=== PATIENT | male | born 1975 | race Caucasian/White ===

== ENCOUNTER → 2018-11-13 | Outpatient (CLI) | payer OTHER ==
--- NOTE | 2018-11-14 17:48 | MRI ---
EXAM DESCRIPTION: Cervical Spine: MRI. CLINICAL HISTORY: 43 years Male Cervical disc disorder a C6-C7 level with radiculopathy COMPARISON: None. TECHNIQUE: Multiplanar, high-field MRI, multiple sequences, non-contrast Cervical spine. FINDINGS: A syrinx is seen in the central canal of the central spinal cord with air-fluid level with the mid C4 vertebral body and lower level of the mid C5 vertebral body approximately 1.5 cm in length. No significant expansion of the cord at this level. Normal signal in the cord surrounding the syrinx. C3-C4: Disc desiccation minimal disc space loss. Minimal spondylosis. Bilateral uncinate spurs. Normal signal in the facet joints. Bilateral neural foraminal stenosis. Mild canal narrowing. Disc level just above the syrinx but no cord compression. Normal facet joints. C4-C5: Disc desiccation with disc space maintained. Bilateral uncinate spurs larger on the right. Right neural foraminal stenosis. Moderate left neural foraminal narrowing. Posterior disc osteophyte bulge abutting the cord which is the level of the mid syrinx. No cord compression. Normal facet joints. C5-C6: Disc desiccation with disc space maintained. Anterior bulging. Posterior broad-based disc bulge almost abutting the cord. Moderate canal narrowing. Bilateral uncinate spurs with bilateral neural foraminal stenosis. Normal facet joints. C6-C7: Disc desiccation and minimal disc space loss. Minimal anterior bulge and endplate ridging. Posterior disc bulge with spur complex but not abutting the cord. Moderate canal narrowing. Bilateral uncinate spurs with moderate left foraminal narrowing and severe right neural foraminal narrowing. Normal signal in the remaining discs with no bulging. Disc spaces preserved. Canal and neural foramina are patent. Facet joints . Spinal alignment neutral. No cord compression or cord edema. Atlantoaxial joint negative.. Base of the cerebellar tonsils is at the level of the foramen magnum. Paravertebral soft tissues negative. Vertebral bodies are not compressed at any level. Normal marrow signal in the remaining vertebral bodies and the posterior elements. IMPRESSION: 1. Multiple levels of spondylosis, posterior disc osteophyte bulge into the canal, uncinate spurs narrowing the foramina. 2. Syrinx in the central cord from the mid C4 vertebral body to the mid C5 vertebral body. Normal signal of the cord surrounding the syrinx. No significant enlargement. No cord compression above or below the syrinx. 3. Posterior disc osteophyte bulge at C3-4 with bilateral uncinate spurs and bilateral neural foraminal stenosis. No canal stenosis. 4. Posterior disc osteophyte bulge C4-C5 abutting the cord. No cord compression. Moderate canal narrowing. Right neural foraminal stenosis. 5. Posterior disc osteophyte bulge C5-C6 abutting the cord. Moderate canal narrowing. Bilateral uncinate spurs with bilateral neural foraminal stenosis. 6. Posterior disc bulge with spur complex but not abutting the cord. Bilateral uncinate spurs with moderate left foraminal narrowing and severe right neural foraminal narrowing. Electronically signed by: Tomás Tim MD 11/14/2018 5:46 PM CDT
== END ==
LOC: MRI 14:00
PROVIDERS: ATTEND Family Medicine
DX: M50.123 Cervical disc disorder at C6-C7 level with radiculopathy (principal); M47.22 Other spondylosis with radiculopathy, cervical region; G95.0 Syringomyelia and syringobulbia; M48.02 Spinal stenosis, cervical region; M25.78 Osteophyte, vertebrae